=== PATIENT | female | born 1970 | race African-American/Black ===

== ENCOUNTER 2024-04-25 21:34 | Emergency (ER) | payer SELFPAY ==
[~2024-04-25] VITALS: Ht 170.2 cm; Wt 145.0 kg
[2024-04-25 21:55] VITALS: O2SAT 98
[2024-04-25] MEDS: KETOROLAC 15MG/ML VIAL IM ONE (22:20)
[2024-04-25] MEDS ORDERED: LIDO700A15 TP (23:26)
[2024-04-25] MEDS ORDERED: NAPR-1176 MT (23:26)
[2024-04-25 23:55] VITALS: BP 162/94; PULSE 73; RESP 16; TEMP 36.55848; O2SAT 97
== END 2024-04-25 23:56 | disposition home or self-care (01) ==
LOC: ER 21:34
DX: M79.605 Pain in left leg (principal); E11.9 Type 2 diabetes mellitus without complications; I10 Essential (primary) hypertension; J45.909 Unspecified asthma, uncomplicated; Z79.1 Long term (current) use of non-steroidal anti-inflammatories (NSAID)
CPT/HCPCS: 82962; 93971; 96372; 99285; J1885; Z7610